=== PATIENT | female | born 1995 | race Caucasian/White ===

== ENCOUNTER 2016-12-09 22:46 | Emergency (ER) | payer OTHER ==
[2016-12-09 22:53] VITALS: RESP 24; TEMP 98.8
[2016-12-09 23:15] LABS: APPEARANCE,URINE Clear; BILIRUBIN,URINE NEGATIVE (NEGATIVE); COLOR,URINE Yellow; GLUCOSE, URINE (UA) NEGATIVE (NEGATIVE); KETONES,URINE TRACE (NEGATIVE); LEUKOCYTE ESTERASE ,URINE NEGATIVE (NEGATIVE); NITRATE,URINE NEGATIVE (NEGATIVE); OCCULT BLOOD,URINE 1+ (NEG-TRACE); UROBILINOGEN,URINE 0.2 (0.2-1.0 EU)
[2016-12-09 23:28] LABS: WBC,URINE 0-1 (0-5AV/HPF)
[2016-12-09 23:44] VITALS: BP 108/67; PULSE 97; O2SAT 97
== END 2016-12-09 23:38 | disposition home or self-care (01) | DRG 780 ==
LOC: ED 22:46
DX: O47.03 False labor before 37 completed weeks of gestation, third trimester (principal); Z3A.32 32 weeks gestation of pregnancy
CPT/HCPCS: 59025; 81001; 99282; 99283